=== PATIENT | female | born 2000 | race Caucasian/White ===

== ENCOUNTER 2019-07-11 15:01 | Emergency (ER) | payer MEDICAID ==
[~2019-07-11] VITALS: Ht 160 cm; Wt 68.2 kg
[2019-07-11 15:18] VITALS: BP 118/67; Ht 160 cm; Wt 68.2 kg
[2019-07-11] MEDS ORDERED: [UNRECOGNIZED DRUG - REMARK] (15:21)
== END 2019-07-11 16:48 | disposition home or self-care (01) ==
LOC: D.ER 15:01
DX: R56.9 Unspecified convulsions (principal); F17.210 Nicotine dependence, cigarettes, uncomplicated

== ENCOUNTER → 2019-11-15 11:12 | Outpatient (CLI) | payer MEDICAID ==
[2019-07-11 15:18] VITALS: BMI 26.6
[~2019-11-15 11:12] MED LIST: [UNRECOGNIZED DRUG - REMARK]
--- NOTE | 2019-11-16 08:54 | EC ---
PATIENT:YOANDY PLUMMER DATE OF SERVICE: 11/15/19 SEX: F MEDICAL RECORD: [id number] DATE OF : [birth year] LOCATION:D.[facility]LY [facility] AGE OF PATIENT: 19 ADMISSION DATE: 11/15/19 REFERRING PHYSICIAN: INTERPRETING PHYSICIAN: MARGRET HICKEY MD ECHOCARDIOGRAM REPORT ECHO CHARGES 4 ECHO COMPLETE Date: 11/15/19 CLINICAL DIAGNOSIS: PALPITATIONS ECHOCARDIOGRAPHIC MEASUREMENTS (adult normal given) AC root (d.<3.7cm) 2.5 cm LV Septum d (<1.2 cm> 1.0 cm Valve Excursion 1.3 cm LV Septum (systole) 1.1 cm Left Atria (s.<4.0cm> 3.0 cm LVPW d(<1.2cm) 0.90 cm RV (d.<2.3cm) 3.3 cm LVPW (sytole) 1.1 cm LV diastole(<5.6CM) 4.8 cm MV E-F(>70mm/sec) cm LV systole 3.2 cm LVOT Diameter 1.8 cm MV exc.(>10mm) 1.6 cm Est.ejection fraction (50-75%) % DOPPLER: LVIT cm/sec A 50.0 cm/sec E 91.0 cm/sec LA cm/sec RVSP 24 mmHg LVOT 119 cm/sec AOP1/2T m/s Asc. Ao 139 cm/sec RVOT 82 cm/sec RA cm/sec PA 106 cm/sec AV Gradient Peak 7.72 mmHg AV Mean 3.57 mmHg AV Area 2.3 cm MV Gradient Peak 3.92 mmHg MV Mean 1.32 mmHg MV Area cm COMMENTS: [employer] Operator: [place] MCKOY Roll Contour Grinder: 3 Dr. Sanchez TAPE# PACS Pericardial Effusion N DATE OF SERVICE: 11/15/2019 Adequate 2-D echo, color-flow and spectral Doppler, and M-mode. No LVH. LV internal dimension is normal. Wall motion is normal. EF equal to 55%. Aortic valve is tricuspid. No evidence of stenosis by Doppler interrogation. Left atrium is normal. Mitral valve shows no prolapse. Physiologic MR. Right-sided chambers are grossly normal. Physiologic TR. TRANSINT:[id number] Voice Confirmation ID: [id number] DOCUMENT ID: [id number] ECHOCARDIOGRAM REPORT [id number] YOANDY PLUMMER,MARGRET Robertson MD at 0854 CC: [id number] DICTATION DATE: 11/15/19 1327 [employer] ETCHER: 11/15/19 1950 [facility] CLI 11/15/19 [facility] [address] [place] [address]
== END | disposition home or self-care (01) ==
LOC: D.HCCECHO 11:12
PROVIDERS: ATTEND Internal Medicine Interventional Cardiology
DX: R00.2 Palpitations (principal)